=== PATIENT | male | born 1955 ===

== ENCOUNTER → 2021-02-21 | Outpatient (CLI) | payer OTHER ==
--- NOTE | 2021-02-21 16:01 | KCIC ---
CT SCREENING FOR CORONARY ARTERY History: Reason: Cardiovascular screening. / Spl. Instructions: / History: Technique: With retrospective electrocardiogram gating axial reconstructed noncontrast images of the chest at the level of the coronary arteries was performed. Images were post processed on workstation and calcium score calculated using the modified Agatston Janowitz protocol. Exposure: One or more of the following individualized dose reduction techniques were utilized for thi s examination: 1. Automated exposure control 2. Adjustment of the mA and/or kV according to patient size 3. Use of iterative reconstruction technique. Comparison: None Findings: Total coronary calcium score is 313. This is a moderate plaque burden and moderate cardiova scular disease risk. This is based on the calcium score of 0 of the left main coronary artery, 313 of the left anterior descending artery, score of 0 of the left circumflex artery and score of 0 of the right coronary artery. Noncoronary findings: Dilated pulmonary artery measures 4.2 cm. Coronary artery calcifications. Calcified mediastinal and h ilar lymph nodes, likely prior granulomatous disease. 2 mm right lower lobe pulmonary nodule (series 5 image 35). IMPRESSION: 1. Moderate cardiovascular disease risk. Calcium score 313. 2. Small pulmonary nodule. Recommend one-year follow-up chest CT without contrast if high risk. 3. Enlarged pulmonary artery, may indicate pulmonary artery hypertension. Electronically signed by: Gavin Ibanez DO (02/21/2021 3:58 PM) [id number]
== END ==
LOC: KCIC CT 15:00
PROVIDERS: ATTEND Specialist
DX: I51.9 Heart disease, unspecified (principal); R91.1 Solitary pulmonary nodule; I28.1 Aneurysm of pulmonary artery; I25.10 Atherosclerotic heart disease of native coronary artery without angina pectoris; I89.8 Other specified noninfective disorders of lymphatic vessels and lymph nodes
CPT/HCPCS: 75571